=== PATIENT | female | born 1945 | race Caucasian/White ===

== ENCOUNTER 2016-08-28 09:01 | Inpatient (IN) | payer MEDICARE, OTHER ==
[2016-08-21 14:57] LABS: HEMATOCRIT 41.5 % (36.0-48.0); HEMOGLOBIN 13.6 g/dL (12.0-16.0)
[2016-08-21 15:14] LABS: BUN (BLOOD UREA NITROGEN) 19 MG/DL (6-23); CALCIUM, SERUM 8.6 MG/DL (8.5-10.4); CHLORIDE, SERUM 104 MMOL/L (96-112); CREATININE 0.67 MG/DL (0.55-1.02); GFR AFRICAN AMERICAN 103 ML/MIN (>=60); GFR NON AFRICAN AMERICAN 89 ML/MIN (>=60); SODIUM, SERUM 142 MMOL/L (135-148)
[2016-08-21 15:15] LABS: CO2 (CARBON DIOXIDE) 31 MMOL/L (24-34); GLUCOSE, SERUM 84 MG/DL (60-99)
--- NOTE | ~2016-08-28 | DS ---
Discharge Summary [facility] [address] [place]. [address] NAME: WON AUGUST I : 47 STATUS : DIS IN PAT#: [id number] AGE: 71 ADM/REG DATE : 08/28/16 MR#: [id number] REPORT SERV DATE: 09/11/16 DICTATED BY: LING CERVANTES II DATE: 09/10/16 REPORT STATUS : Draft TRANSCRIBED BY: RAMONE DATE: 09/10/16 Data Collection from hospitalization DISCHARGE DIAGNOSES: 1. 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 2. Hypertension. 3. Anemia. 4. Cataracts. 5. Hypoglycemia. 6. Osteoarthritis. 7. Hearing loss. 8. Palpitations. CONSULTATIONS: 1. Ochoa Lagos M.D. 2. Arina Cabrera M.D. PROCEDURES PERFORMED: Lumbar laminectomy and facetectomy, L3-L4; interbody arthrodesis, L3- L4; application of prosthetic device, L3-4; removal of hardware, L4-5; posterolateral arthrodesis, L3-4; use of nonsegmental instrumentation, L3-4; use of local autograft, allograft substitute, and bone morphogenic protein; use of microscope and stereotactic spinal imaging on 08/28/2016. PATHOLOGY: Bone, soft tissue and surgical hardware, lumbar spine - bone, skeletal muscle, and fibrocartilage, no significant microscopic abnormality, surgical hardware (see gross description). MEDICATIONS: Norvasc 10 mg daily, vitamin C 500 mg daily, Citracal one tablet at bedtime, Coreg 3.125 mg twice a day, Valium 2 mg every six to eight hours as needed, Vivelle 0.05 mg topically twice a week as instructed, Osteo Bi-Flex one tablet daily, Cozaar 100 mg daily, MS Contin 15 mg every 12 hours, Centrum tablets one tablet daily, Percocet 5/325 one tablet every four to six hours as needed, vitamin E 400 units daily, Avendano milk of magnesia one tablet at bedtime. CONDITION AT DISCHARGE: Stable. DISPOSITION: The patient was discharged home on a regular diet with activities as instructed. She would follow up with me on 09/24/2016. HOSPITAL COURSE: This is a 71-year-old female who had been complaining of lumbar spine- related symptoms. The symptoms are located in the lower back. She was felt to have adjacent segment degeneration at L3-4 with L3-4 stenosis and coronal collapse with associated right lower extremity radiculopathy. Treatment options were discussed and it was elected to proceed with surgical intervention. She was admitted to the hospital for further evaluation and treatment. Upon admission, she was taken to the operating room where she underwent the above-mentioned Discharge Summary [address] [address] NAME: WON AUGUST I : 47 STATUS : DIS IN PAT#: [id number] AGE: 71 ADM/REG DATE : 08/28/16 MR#: [id number] REPORT SERV DATE: 09/11/16 DICTATED BY: LING CERVANTES II DATE: 09/10/16 REPORT STATUS : Draft TRANSCRIBED BY: RAMONE DATE: 09/10/16 procedure. She tolerated this well, and there were no complications. On postop day #1, she was stable. Lower extremity radiculopathy was improving. We encouraged her to mobilize. She was evaluated by Physical Therapy. On 08/30/2016, she was feeling well. She was beginning to ambulate more. Hidalgo catheter and INSURANCE CLAIMS CLERK were going to be discontinued. On 08/31/2016, she was by Dr. Ochoa Lagos regarding new-onset atrial fibrillation. She was undergoing her rehabilitation and was doing physical therapy with preparations to go home when she suddenly felt palpitations and dizziness and was found to be in atrial fibrillation with rapid ventricular response. She eventually received some IV Cardizem and was transferred to the medical intensive care unit. Her blood pressure had been borderline hypotensive with systolic values between 90 and 100, but relatively asymptomatic. Her ventricular response was still elevated with rates of approximately 130 beats per minute. She does have a history of palpitations, but no history of atrial fibrillation. Blood pressure was borderline. He recommended attempting to convert her to a sinus rhythm. We would try to use oral flecainide to see if this would convert her. If this did not occur, then we may wish to have her undergo electrical cardioversion. We would consider IV ibutilide for conversion as well. The patient converted to a normal sinus rhythm with IV ibutilide. We were going to hold off on anticoagulation for now. The patient was also seen by Dr. Arina Cabrera. Rapid Response had been called when the patient had developed atrial fibrillation with rapid ventricular response. The patient was now back in a sinus rhythm. She is going to stay in the unit overnight. Troponin was negative. The following day, she maintained a sinus rhythm with occasional PACs. Discharge planning was performed. She was neurologically intact. She was evaluated by Physical Therapy. On 09/02/2016, she was alert. She had no focal deficits. Discharge instructions were given. Due to her improved and stable condition, she was discharged home with the above-stated instructions. Information collected by: Parisa Carrasquillo I submit the above information as my discharge summary. TG/MODL Ling Cervantes II, M.D. / [id number] CC: Michael Jackman II, M.D. Gregg Shander, M.D.
--- NOTE | ~2016-08-28 | CN ---
Consultation Report [facility] [address] [place]. [address] NAME: WON AUGUST I : 47 STATUS : ADM IN [facility]#: [id number] AGE: 71 ADM/REG DATE : 08/28/16 MR#: [id number] REPORT SERV DATE: 08/31/16 DICTATED BY: JOSE MARIA RICO DATE: 08/31/16 REPORT STATUS : Draft TRANSCRIBED BY: MODL DATE: 08/31/16 CARDIOLOGY CONSULTATION DATE OF CONSULTATION: 08/31/2016 REASON FOR CONSULTATION: This is regarding new onset atrial fibrillation. HISTORY OF PRESENT ILLNESS: The patient is a very pleasant, 71-year-old woman who was in the hospital for lumbar spine surgery performed by Dr. Cervantes on 08/28/2016. She was undergoing her rehabilitation, today was doing physical therapy with preparations to go home when she suddenly felt palpitations, dizziness, and was noted to be in atrial fibrillation with rapid ventricular response. She eventually received some IV Cardizem and was transferred to the medical intensive care unit. Here, her blood pressure has been borderline hypotensive, systolic values between 90 and 100, but relatively asymptomatic. Her ventricular response is still elevated with rates of approximately 130 beats per minute. The patient has a history of palpitations, but no history of atrial fibrillation. She sees Dr. Jarod Hoover for these complaints. She has no history of CHF or coronary disease. She does have a history of hypertension, had a CHADS-VASc score of 3 for age greater than 65, hypertension, and being female. PAST MEDICAL HISTORY: Notable for a history of hypertension. She has a history of lumbar spine issues status post surgery. SURGICAL HISTORY: In addition to the lumbar spine include appendectomy, hysterectomy, left breast cyst removal, tonsillectomy, removal of a cervical rib. FAMILY HISTORY: Notable for premature coronary artery disease, myocardial infarction, history of stroke. SOCIAL HISTORY: Negative for tobacco, negative for alcohol. Retired. REVIEW OF SYSTEMS: As noted above. All other systems reviewed and negative. PHYSICAL EXAMINATION: GENERAL: She is in no acute distress. VITAL SIGNS: Her blood pressure currently is 96/50, pulse is between 100 and 130 in atrial fibrillation, respirations are 16. She is afebrile. HEENT: No icterus. Good dentition. NECK: Supple. No masses or thyromegaly. LUNGS: Breathing comfortably. No rales or wheezes. COR: She has an irregularly irregular rhythm. ABD: Soft, nondistended, nontender, no hepatosplenomegaly. Consultation Report [facility] [address] [place]. [address] NAME: WON AUGUST I : 47 STATUS : ADM IN PAT#: [id number] AGE: 71 ADM/REG DATE : 08/28/16 MR#: [id number] REPORT SERV DATE: 08/31/16 DICTATED BY: JOSE MARIA RICO DATE: 08/31/16 REPORT STATUS : Draft TRANSCRIBED BY: RAMONE DATE: 08/31/16 EXT: No clubbing, cyanosis or edema. Peripheral pulses 2+ or equal bilaterally. SKIN: Warm and dry. No visible lesions. MS: Chest wall without deformity, no obvious clavicular fractures. NEURO/PSYCH: Oriented x3. No anxiety or depression. EKG from 08/21/2016 demonstrates sinus rhythm, normal PVR, QRS, and QT intervals. No evidence for ischemia or infarction. Telemetry demonstrates atrial fibrillation. EKG currently shows atrial fibrillation with runs of wide-complex beats that have a left bundle- branch block morphology suggestive of aberrancy, cannot completely exclude nonsustained ventricular tachycardia or PVCs. This is not demonstrated on the current telemetry. RECOMMENDATION: The patient with a history of palpitations but no documented history of atrial fibrillation. She is status post recent lumbar surgery and just prior to going home, she demonstrated atrial fibrillation with rapid ventricular response. She is symptomatic with this noting dizziness and lightheadedness. There are borderline blood pressures. I would recommend attempting to convert her to sinus rhythm. We could try use of p.o. flecainide to see if this will convert her. If that does not occur, then we may wish to have her undergo electrical cardioversion. We could also consider IV ibutilide for conversion as well. In the meantime, I will talk with Dr. Cervantes as to whether she would be a candidate for anticoagulation. She still has a TAD drain in, that still has some bloody effusion, so she may not want to have her undergo this and if she remains unable to convert to sinus rhythm, we may still consider cardioversion likely she would not require ANTONIO. We could try to perform this within 24-36 hours of the onset of her atrial fibrillation to diminish the risk of CVA. ALKA/RAMONE Jose Maria Rico M.D. / [id number] CC: Zachery Cervantes II, M.D.
--- NOTE | ~2016-08-28 | OP ---
Record Of Operation [facility] [address] [place]. 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 PROCEDURES: 1. Lumbar laminectomy and facetectomy, L3-L4. 2. Interbody arthrodesis, L3-L4. 3. Application of prosthetic device, L3-4. 4. Removal of hardware, L4-5. 5. Posterolateral arthrodesis, L3-4. 6. Use of nonsegmental instrumentation, L3-4. 7. Use of local autograft, allograft substitute, and bone morphogenic protein. 8. Use of the microscope and stereotactic spinal imaging. PREOPERATIVE HISTORY: This is a very friendly, 71-year-old female, who did very well following an L4-5 fusion remotely. We discussed the pros and cons of surgery for her L3-4 stenosis and coronal collapse and associated right lower extremity radiculopathy. We discussed the surgery and the minimally invasive nature of such but still discussed that it would require a course in the hospitalization and the recovery. We discussed the fact that we would allow her to return to activities as tolerated with exception of avoiding bad bending as well as limiting to no more than 25 pounds for six weeks. I discussed with her family also the rates of success versus failure. Unfortunately, she did not have severe back pain but primarily radiculopathy. DESCRIPTION OF PROCEDURE: After informed consent was obtained, the patient was brought to the operating room at her request, and general anesthesia achieved. She was placed in the prone position and the back was prepped and draped in a sterile fashion. The stereotactic spinal pin was placed into the left iliac crest and the intraoperative CT scan completed. Stereotactic guidance was then used throughout the remainder of the case. A minimally invasive incision was performed on the right at L3-4 and L4-5. The hardware was identified at L4-5 and removed. The fusion appeared to be solid at L4-5 without any obvious motion. Next, the L3-4 facet was isolated and the quadrant retractor placed. The transverse processes were dissected upon and the facet capsule removed. Under microscopic visualization, the complete facetectomy was performed and the pars was now removed with a high-speed bur and the Kerrison rongeurs and the curettes. The pedicle-to- pedicle decompression was achieved. The hypertrophic ligamentum flavum was removed and the dura well identified and decompressed. Both the L3 and L4 nerve roots now were free of Record Of Operation [address] [address] NAME: WON AUGUST I : 47 STATUS : ADM IN PAT#: [id number] AGE: 71 ADM/REG DATE : 08/28/16 MR#: [id number] REPORT SERV DATE: 08/31/16 DICTATED BY: LING CERVANTES II DATE: 08/31/16 REPORT STATUS : Draft TRANSCRIBED BY: RAMONE DATE: 08/31/16 compression. Next, the diskectomy was performed with the L4 nerve root being minimally retracted. The disk was now removed using the pituitary rongeurs, Kerrison rongeurs, and the curettes. The jun were also used. The area was now irrigated. Punctate bleeding bone was identified. Next, the local autograft, allograft substitute, and bone morphogenic protein were then placed into the anterior column. The prosthetic device was then also chosen and placed into the anterior column. Excellent fit was obtained. Next, the pedicle screws were applied into L3 and L4. On the left side, we then also performed a small incision and removed the hardware at L3-4 followed by placement of pedicle screws into L3 and L4. A repeat CT scan confirmed acceptable placement of the implants. The rods were then final tightened. Next, on the right side, we decorticated the transverse process of L3 and L4 and local autograft, allograft substitute and bone morphogenic protein were then placed along the decorticated surfaces. The deep drain was placed followed by standard closure. The patient was then extubated and transferred to PACU in stable condition. BENY/RAMONE Ling Cervantes II, M.D. / [id number] CC: Michael Jackman II, M.D.
[~2016-08-28 09:01] MED LIST: ACET500CAP PO; ADVIL PO; CALTRA600D PO; CENTRUM PO; CITRACAL PO; COREG3 PO; COZAAR100 MG PO; LEXAPRO10 PO; LISINOPRIL40 MG PO; MULTIPLE VIT PO; NEUR300 PO; NORV10 PO; OS500+D PO; OSTEO BI-FLEX1 EACH PO; PRIN20 PO; STRESSZINC PO; VIT A & D; VITAMIN A & D; VITC500 PO; VITE PO; VIVELLE SY0.05 MG/24 TOP; VIVELLE-DOT0.075 MG TOP; ZOFRAN4 PO; [UNRECOGNIZED DRUG - OTHER] PO
[2016-08-31 10:44] LABS: A/G RATIO 0.9 (0.7-1.9); ALBUMIN 3.3 G/DL (3.5-5.0); ALKALINE PHOSPHATASE 69 U/L (45-117); BUN (BLOOD UREA NITROGEN) 16 MG/DL (6-23); CALCIUM, SERUM 8.8 MG/DL (8.5-10.4); CHLORIDE, SERUM 105 MMOL/L (96-112); CREATININE 0.66 MG/DL (0.55-1.02); GFR AFRICAN AMERICAN 104 ML/MIN (>=60); GFR NON AFRICAN AMERICAN 90 ML/MIN (>=60); GLOBULIN 3.7 G/DL (2.5-4.1); PHOSPHORUS, SERUM 2.9 MG/DL (2.5-4.5); SGPT(ALT) 46 U/L (5-65); SODIUM, SERUM 144 MMOL/L (135-148); TOTAL BILIRUBIN 0.4 MG/DL (0-1.2); TROPONIN I <0.02 NG/ML (<0.05)
[2016-08-31 10:46] LABS: CO2 (CARBON DIOXIDE) 25 MMOL/L (24-34); CPK 305 U/L (0-200); GLUCOSE, SERUM 130 MG/DL (60-99); POTASSIUM, SERUM 3.7 MMOL/L (3.5-5.3); SGOT(AST) 37 U/L (5-40)
[2016-08-31 18:40] LABS: TROPONIN I <0.02 NG/ML (<0.05)
[2016-08-31 18:41] LABS: CK-MB 2.6 NG/ML; CPK 210 U/L (0-200)
[2016-09-01 04:43] LABS: BASOPHILS 0.2 %; BASOPHILS ABSOLUTE 0.02 10/3/uL (0.0-0.16); EOSINOPHILS 2.4 %; EOSINOPHILS ABSOLUTE 0.26 10/3/uL (0.0-0.53); HEMATOCRIT 39.7 % (36.0-48.0); IMMATURE GRANULOCYTES 0.5 %; IMMATURE GRANULOCYTES ABSOLUTE 0.05 10/3/uL (0.0-0.11); LYMPHOCYTES 22.2 %; LYMPHOCYTES ABSOLUTE 2.38 10/3/uL (0.67-4.30); MEAN CORPUS HGB CONC 32.7 g/dL (32.0-36.0); MEAN CORPUSCULAR HEMOGLOB 29.6 pg (26.0-34.0); MEAN CORPUSCULAR VOLUME 90.4 fL (80-100); MEAN PLATELET VOLUME 11.4 fL (9.2-13.0); MONOCYTES 8.5 %; MONOCYTES ABSOLUTE 0.91 10/3/uL (0.21-1.20); NEUTROPHILS 66.2 %; NEUTROPHILS ABSOLUTE 7.12 10/3/uL (2.02-8.40); PLATELET COUNT 219 10/3/uL (150-400); RBC DISTRIBUTION WIDTH 14.2 % (12.0-16.0); RED CELL COUNT 4.39 10/6/uL (4.0-5.6); WHITE BLOOD CELLS 10.7 10/3/uL (4.5-10.5)
[2016-09-01 04:44] LABS: MANUAL DIFF NO %
[2016-09-01 05:12] LABS: CALCIUM, SERUM 9.6 MG/DL (8.5-10.4); CHLORIDE, SERUM 104 MMOL/L (96-112); CO2 (CARBON DIOXIDE) 28 MMOL/L (24-34); CREATININE 0.51 MG/DL (0.55-1.02); GFR AFRICAN AMERICAN 113 ML/MIN (>=60); GFR NON AFRICAN AMERICAN 97 ML/MIN (>=60); GLUCOSE, SERUM 111 MG/DL (60-99); POTASSIUM, SERUM 3.5 MMOL/L (3.5-5.3); SODIUM, SERUM 143 MMOL/L (135-148); TROPONIN I <0.02 NG/ML (<0.05)
[2016-09-01 05:13] LABS: BUN (BLOOD UREA NITROGEN) 25 MG/DL (6-23); CK-MB 1.7 NG/ML; CPK 128 U/L (0-200); PHOSPHORUS, SERUM 4.2 MG/DL (2.5-4.5)
[2016-09-02] MEDS ORDERED: V2 PO (09:40)
[2016-09-02] MEDS ORDERED: PCET PO (09:40)
[2016-09-02] MEDS ORDERED: MSCONT15 PO (09:41)
== END 2016-09-02 12:02 | disposition home or self-care (01) | DRG 460 ==
LOC: SDC/OF 09:01 → PACU 15:34 → 3SO 17:31 → MIC 08-31 10:15 → 3SO 09-01 17:53
PROVIDERS: Internal Medicine Pulmonary Disease; Nurse Practitioner Acute Care; Orthopaedic Surgery
PROC: 0SG00AJ Fusion of Lumbar Vertebral Joint with Interbody Fusion Device, Posterior Approach, Anterior Column, Open Approach (ICD-10-PCS; principal; 2016-08-28 11:15)
PROC: 0SP004Z Removal of Internal Fixation Device from Lumbar Vertebral Joint, Open Approach (ICD-10-PCS; 2016-08-28 11:15)
PROC: 4A11X4G Monitoring of Peripheral Nervous Electrical Activity, Intraoperative, External Approach (ICD-10-PCS; 2016-08-28 11:15)
DX: M51.16 Intervertebral disc disorders with radiculopathy, lumbar region (principal)
CPT/HCPCS: 71010; 80048; 80053; 82550; 82553; 82962; 83735; 84100; 84443; 84484; 85014; 85018; 85025; 87641; 88300; 88304; 88311; 93005; 97110-GP; 97116-GP; 97161-GP; A9270-GY; C1713; C1768; C1769; G8978-CK-GP; G8979-CI-GP; J0690; J1170; J1644; J1742; J2250; J2270; J2405; J2550; J2710; J3010; J3370